=== PATIENT | male | born 1945 | race Caucasian/White ===

== ENCOUNTER 2023-01-05 13:02 | Emergency (ER) | payer MEDICARE, SELFPAY ==
[2023-01-05] VITALS (13 sets, daily range): BP systolic 107–161; BP diastolic 60–76; PULSE 95–112; RESP 16–22; TEMP 36.5; O2SAT 94–98; BMI 31.3
--- NOTE | 2023-01-05 13:49 | ED_ITS ---
HPI - Abdominal Pain <Mahogany Puga PA-C - Last Filed: 01/05/23 17:08> General Chief Complaint: Abdominal Pain Stated Complaint: Abd pain, vomiting, r side Time Seen by Provider: 01/05/23 13:29 Source: patient and family Mode of arrival: Ambulatory History of Present Illness HPI narrative: 77-year-old male with history of cardiac bypass surgery summer 2021, presents with his with concern for abdominal pain since yesterday around 10:00 a.m. that has been worsening significantly. Patient states that he was walking his dog when the pain started and he noticed it 1st as a generalized band across his upper abdomen. He said it was pretty uncomfortable and he went home and vomited profusely for awhile. He states he has not eaten anything since this time he has not had an appetite but he also has not continued to vomit. He says that the pain has gradually migrated and is now on the right side to the right of his belly button. He states it is very painful when he presses on it and it is also painful with movements and with walking. He describes it as a sharp pain that is constant. He endorses it is 6 or 7/10 when he is pressing on it and about a 2 or 3 at rest. He denies any previous abdominal surgeries. Patient states yesterday morning after his pain began and his vomiting episode happened he did have a bowel movement that was normal for him. He is not had a bowel movement since. Patient does state that he had a ?full body shock? after he took Dilaudid many years ago they transitioned to morphine and did fine with this. Also denies chest pain, shortness of breath diarrhea, flank pain, dysuria, constipation or any other symptoms. Related Data Home Medications Medication Instructions Recorded Confirmed CA PANTOTHENATE/FOLIC ACID/VIT 1 tab PO QDAY ##0 09/24/12 (MULTIVITAMIN) TERBINAFINE HYDROCHLORIDE (LAMISIL PRN ##0 09/24/12 AT 1%) [CALCIUM/VITAMIN D] ##0 09/24/12 aspirin 81 mg tablet,delayed 81 mg PO QDAY ##0 09/24/12 release DIMETHYL SULFONE/GLUCOSAMINE2 1 cap PO QDAY ##0 09/25/12 (GLUCOSAMINE SULFATE-MSM 500mg/500mg) CLOTRIMAZOLE 1% (LOTRIMIN) 1 % topical PRN ##30 09/30/12 acetaminophen 500 mg tablet 1 - 2 tab PO Q6HP PRN ##0 01/14/18 (Tylenol Extra Strength) atorvastatin 80 mg tablet (Lipitor) 1 tab PO Q DAY ##0 01/14/18 cetirizine 10 mg tablet 1 tab PO Q DAY ##0 01/14/18 clopidogrel 75 mg tablet (Plavix) 1 tab PO Q DAY PRN ##0 01/14/18 coenzyme Q10 100 mg capsule (Co 1 cap PO Q DAY ##0 01/14/18 Q-10) metoprolol succinate 25 mg 1 tab PO Q DAY ##0 01/14/18 tablet,extended release 24 hr (Toprol XL) nitroglycerin 0.4 mg sublingual 1 tab PO SEE INSTRUCTIONS PRN ##0 01/14/18 tablet (Nitrostat) Allergies Allergy/AdvReac Type Severity Reaction Status Date / Time chamomile flower Allergy Intermediate Abdominal Verified 01/05/23 14:05 [CHAMOMILE FLOWER] Pain meperidine [MEPERIDINE] Allergy Unknown Out of Unverified 01/28/18 12:52 body feeling/diaphoretic propoxyphene [PROPOXYPHENE] Allergy Unknown Unverified 01/28/18 12:52 hydromorphone [From Dilaudid] AdvReac Intermediate Verified 01/05/23 14:06 Review of Systems <Mahogany Puga PA-C - Last Filed: 01/05/23 17:08> Review of Systems Narrative: Unremarkable except as noted in the HPI Patient History <Mahogany Puga PA-C - Last Filed: 01/05/23 17:08> Social History Smoking Status: Never smoker Smoking Status: Never smoker alcohol intake frequency: 0-2 drinks per day Substance Use Type: does not use Exam <Mahogany Puga PA-C - Last Filed: 01/05/23 17:08> Narrative Exam Narrative: GENERAL: 77 year old patient appears stated age. Well-developed patient, in mild distress. HEAD: Atraumatic. Normocephalic. EYES: Pupils equal round and reactive. Extraocular motions intact. No scleral icterus. No injection or drainage. ENT: Nose without bleeding, purulent drainage. Airway patent. NECK: Trachea midline. Non tender CARDIOVASCULAR: Regular rate and rhythm without murmurs, gallops, or rubs. RESPIRATORY: Clear to auscultation. Breath sounds equal bilaterally. No wheezes, rales, or rhonchi. GASTROINTESTINAL: Abdomen soft, significant tenderness over the right lower quadrant and McBurney's point, otherwise slightly tender in the right upper quadrant otherwise non-tender, nondistended, very slight CVA tenderness on the right. Subtly positive obturator sign, negative heel tap. Increased RLQ pain with movement. EXTREMITIES: No bilateral mild lower extremity edema greater right than left, there is scarring on the right lower leg consistent with previous vascular harvesting no joint tenderness. BACK: Nontender without deformity or crepitance. Very slight right flank tenderness. NEURO: AOx3. SKIN: No rash or erythema of visible areas Initial Vital Signs Initial Vital Signs: Vital Signs Temperature 97.7 F 01/05/23 13:25 Pulse Rate 99 H 01/05/23 13:25 Respiratory Rate 18 01/05/23 13:25 Blood Pressure 161/76 H 01/05/23 13:25 Pulse Oximetry 98 01/05/23 13:25 Oxygen Delivery Method Room Air 01/05/23 13:25 <Yousuf Torres MD - Last Filed: 01/05/23 17:54> Initial Vital Signs Initial Vital Signs: Vital Signs Temperature 97.7 F 01/05/23 13:25 Pulse Rate 99 H 01/05/23 13:25 Respiratory Rate 18 01/05/23 13:25 Blood Pressure 161/76 H 01/05/23 13:25 Pulse Oximetry 98 01/05/23 13:25 Oxygen Delivery Method Room Air 01/05/23 13:25 Course <Mahogany Puga PA-C - Last Filed: 01/05/23 17:08> Course Course Narrative: Patient has labs notable for a very slight leukocytosis to 12.3. Otherwise unremarkable. Radiologist called and advised the patient has an acute appendicitis noted a large appendicolith but did not see evidence of abscess. 2 g cefazolin IV ordered as well as 500 mg metronidazole. Per staff OR is down and surgical cases will require transfer. Do consult on-call surgeon Dr. Escudero. [address] Escudero, on-call surgeon who is agreeable with the plan for metronidazole and cefazolin advises if patient is stuck here for period of time repeat cefazolin every 8 hours, she does state it is possible that he could do an interval appendectomy if there is difficulty in getting him transferred, given his moderate leukocytosis and may be possible to transition him to Augmentin and follow-up surgery. 15:30 In a coordinator advises that schedule it is a possible transfer destination they will be able to let us know in the next 30 minutes to 1 hour, [facility] is also possible this with a similar timeline. At this point will hold off on further check ins with hospitals, if we are able to get him admitted to a closer facility I think that makes more sense. 16:[address] Blanton, Surgery at [facility] spoke to me and I gave report on this p atient, it sounds like she would be willing to take the patient although unclear if they will try to do outpatient surgery or admit the patient, they will call back after checking with the electrician powerhouse there. 16:15 Pt is accepted at [facility] under Dr Blanton, working on transfer. Pt and family ty carreno. 1620 Orders Ordered: ED Orders 01/05/23 13:50 CT abdomen pelvis w con Stat 01/05/23 13:55 Complete Blood Count AUTO DIFF Stat Comprehensive Metabolic Panel Stat Lipase Stat Troponin & CK Cardiac Panel Stat 01/05/23 14:04 EKG-12 Lead Routine 01/05/23 16:05 Blood Culture Stat 01/05/23 17:01 COVID19 -Nasal RAPID Stat Discontinued Medications Sodium Chloride (Normal Saline 0.9%) 500 mls @ 1,000 mls/hr IV BOLUS ONE Stop: 01/05/23 14:53 Last Infusion: 01/05/23 14:58 Dose: 0 mls/hr Documented By: Admin: 01/05/23 14:28 Dose: 1,000 mls/hr Documented By: KENIA Metronidazole (Flagyl) 500 mg in 100 mls @ 100 mls/hr IV NOW ONE Stop: 01/05/23 16:20 Last Admin: 01/05/23 16:52 Dose: 100 mls/hr Documented By: KENIA Cefazolin Sodium/Dextrose (Ancef) 100 mls @ 200 mls/hr IV NOW ONE Stop: 01/05/23 15:53 Last Infusion: 01/05/23 16:52 Dose: 0 mls/hr Documented By: Admin: 01/05/23 16:18 Dose: 200 mls/hr Documented By: KENIA Morphine Sulfate (Morphine 2 Mg/Ml Inj) 2 mg IV NOW ONE Stop: 01/05/23 13:48 Last Admin: 01/05/23 14:10 Dose: 2 mg Documented By: KENIA Morphine Sulfate (Morphine 2 Mg/Ml Inj) 2 mg IV NOW ONE Stop: 01/05/23 17:10 Last Admin: 01/05/23 17:13 Dose: 2 mg Documented By: KENIA Ondansetron HCl (Ondansetron 4 Mg/2 Ml Inj) 4 mg IV NOW ONE Stop: 01/05/23 13:48 Last Admin: 01/05/23 14:09 Dose: Not Given Documented By: KENIA Vital Signs Vital signs: Vital Signs - 8 hr 01/05/23 13:25 01/05/23 13:35 01/05/23 14:00 Temperature 97.7 F Pulse Rate 99 H 100 H 98 H Respiratory Rate 18 22 Blood Pressure 161/76 H Pulse Oximetry 98 96 95 Oxygen Delivery Method Room Air 01/05/23 14:19 01/05/23 14:19 01/05/23 14:30 Temperature Pulse Rate 104 H Respiratory Rate 19 Blood Pressure 107/64 137/70 Pulse Oximetry 95 Oxygen Delivery Method 01/05/23 14:30 01/05/23 15:14 01/05/23 15:14 Temperature Pulse Rate 107 H 112 H Respiratory Rate 20 21 Blood Pressure 134/73 Pulse Oximetry 94 96 Oxygen Delivery Method 01/05/23 15:30 01/05/23 15:31 01/05/23 15:31 Temperature Pulse Rate 112 H 107 H Respiratory Rate 18 16 Blood Pressure 136/70 Pulse Oximetry 94 95 Oxygen Delivery Method 01/05/23 16:00 01/05/23 16:00 01/05/23 16:30 Temperature Pulse Rate 103 H Respiratory Rate Blood Pressure 143/66 H 135/68 Pulse Oximetry 96 Oxygen Delivery Method 01/05/23 16:30 01/05/23 16:58 01/05/23 16:58 Temperature Pulse Rate 102 H 97 H Respiratory Rate 21 22 Blood Pressure 117/66 Pulse Oximetry 95 96 Oxygen Delivery Method 01/05/23 16:59 01/05/23 17:00 Temperature Pulse Rate 95 H Respiratory Rate 21 Blood Pressure 126/60 Pulse Oximetry 97 Oxygen Delivery Method <Yousuf Torres MD - Last Filed: 01/05/23 17:54> Orders Ordered: ED Orders 01/05/23 13:50 CT abdomen pelvis w con Stat 01/05/23 13:55 Complete Blood Count AUTO DIFF Stat Comprehensive Metabolic Panel Stat Lipase Stat Troponin & CK Cardiac Panel Stat 01/05/23 14:04 EKG-12 Lead Routine 01/05/23 16:05 Blood Culture Stat 01/05/23 17:01 COVID19 -Nasal RAPID Stat Discontinued Medications Sodium Chloride (Normal Saline 0.9%) 500 mls @ 1,000 mls/hr IV BOLUS ONE Stop: 01/05/23 14:53 Last Infusion: 01/05/23 14:58 Dose: 0 mls/hr Documented By: Admin: 01/05/23 14:28 Dose: 1,000 mls/hr Documented By: KENIA Metronidazole (Flagyl) 500 mg in 100 mls @ 100 mls/hr IV NOW ONE Stop: 01/05/23 16:20 Last Admin: 01/05/23 16:52 Dose: 100 mls/hr Documented By: SB Cefazolin Sodium/Dextrose (Ancef) 100 mls @ 200 mls/hr IV NOW ONE Stop: 01/05/23 15:53 Last Infusion: 01/05/23 16:52 Dose: 0 mls/hr Documented By: Admin: 01/05/23 16:18 Dose: 200 mls/hr Documented By: KENIA Morphine Sulfate (Morphine 2 Mg/Ml Inj) 2 mg IV NOW ONE Stop: 01/05/23 13:48 Last Admin: 01/05/23 14:10 Dose: 2 mg Documented By: SB Morphine Sulfate (Morphine 2 Mg/Ml Inj) 2 mg IV NOW ONE Stop: 01/05/23 17:10 Last Admin: 01/05/23 17:13 Dose: 2 mg Documented By: KENIA Ondansetron HCl (Ondansetron 4 Mg/2 Ml Inj) 4 mg IV NOW ONE Stop: 01/05/23 13:48 Last Admin: 01/05/23 14:09 Dose: Not Given Documented By: SB Vital Signs Vital signs: Vital Signs - 8 hr 01/05/23 13:25 01/05/23 13:35 01/05/23 14:00 Temperature 97.7 F Pulse Rate 99 H 100 H 98 H Respiratory Rate 18 22 Blood Pressure 161/76 H Pulse Oximetry 98 96 95 Oxygen Delivery Method Room Air 01/05/23 14:19 01/05/23 14:19 01/05/23 14:30 Temperature Pulse Rate 104 H Respiratory Rate 19 Blood Pressure 107/64 137/70 Pulse Oximetry 95 Oxygen Delivery Method 01/05/23 14:30 01/05/23 15:14 01/05/23 15:14 Temperature Pulse Rate 107 H 112 H Respiratory Rate 20 21 Blood Pressure 134/73 Pulse Oximetry 94 96 Oxygen Delivery Method 01/05/23 15:30 01/05/23 15:31 01/05/23 15:31 Temperature Pulse Rate 112 H 107 H Respiratory Rate 18 16 Blood Pressure 136/70 Pulse Oximetry 94 95 Oxygen Delivery Method 01/05/23 16:00 01/05/23 16:00 01/05/23 16:30 Temperature Pulse Rate 103 H Respiratory Rate Blood Pressure 143/66 H 135/68 Pulse Oximetry 96 Oxygen Delivery Method 01/05/23 16:30 01/05/23 16:58 01/05/23 16:58 Temperature Pulse Rate 102 H 97 H Respiratory Rate 21 22 Blood Pressure 117/66 Pulse Oximetry 95 96 Oxygen Delivery Method 01/05/23 16:59 01/05/23 17:00 Temperature Pulse Rate 95 H Respiratory Rate 21 Blood Pressure 126/60 Pulse Oximetry 97 Oxygen Delivery Method MDM - Abdominal Pain <Mahogany Puga PA-C - Last Filed: 01/05/23 17:08> Differential Diagnosis Differential diagnosis: Likely abdominal pain and acute appendicitis Medical Records Attestation: I reviewed the patient's medical records. Lab Data Attestation: I reviewed the patient's lab results. 01/05/23 13:55 01/05/23 13:55 Labs: Lab Results 01/05/23 01/05/23 01/05/23 Range/Units 13:55 13:55 13:55 WBC 12.3 H (4.5-11.0) X10^3/uL RBC 4.18 L (4.5-5.9) X10^6/uL Hgb 12.3 L (13.5-17.5) g/dL Hct 35.9 L (41-53) % MCV 86.0 (80-100) fL MCH 29.5 (26-34) PG MCHC 34.3 (30-36) % RDW 13.3 (11.6-14.8) % Plt Count 293 (150-400) X10^3/uL Neut % (Auto) 84.2 H (50-75) % Lymph % (Auto) 8.0 L (25-40) % [place] % (Auto) 7.5 (3-14) % Eos % (Auto) 0.2 L (2-4) % Baso % (Auto) 0.1 (0-2) % Neut # (Auto) 01918 H (8895-1627) /uL Lymph # (Auto) 1000 L (2517-8928) /uL [place] # (Auto) 900 (0-900) /uL Eos # (Auto) 0 (0-450) /uL Baso # (Auto) 0 (0-100) /uL Sodium 137 (137-145) mmol/L Potassium 3.6 (3.4-5.1) mmol/L Chloride 101 (98-107) mmol/L Carbon Dioxide 28 (22-32) mmol/L BUN 14 (9-20) mg/dL Creatinine 0.80 (0.66-1.25) mg/dL Estimated GFR > 60 (>60) mL/min BUN/Creatinine Ratio 17.5 (6-22) Glucose 131 H (80-110) mg/dL Calcium 8.9 (8.4-10.2) mg/dL Total Bilirubin 1.3 (0.2-1.3) mg/dL AST 22 (17-59) IU/L ALT 21 (<50) IU/L Alkaline Phosphatase 63 (38-126) U/L Total Creatine Kinase 39 L (55-170) U/L CK-MB (CK-2) TNP CK-MB (CK-2) Rel Index TNP Troponin I < 0.012 (0.01-0.034) ng/mL Total Protein 7.5 (6.3-8.2) g/dL Albumin 4.3 (3.5-5.0) g/dL Globulin 3.2 (1.7-4.1) g/dL Albumin/Globulin Ratio 1.3 (1.0-2.8) Lipase 53 (23-300) U/L SARS-CoV-2 (PCR) (Negative) 01/05/23 Range/Units 17:01 WBC (4.5-11.0) X10^3/uL RBC (4.5-5.9) X10^6/uL Hgb (13.5-17.5) g/dL Hct (41-53) % MCV (80-100) fL MCH (26-34) PG MCHC (30-36) % RDW (11.6-14.8) % Plt Count (150-400) X10^3/uL Neut % (Auto) (50-75) % Lymph % (Auto) (25-40) % [place] % (Auto) (3-14) % Eos % (Auto) (2-4) % Baso % (Auto) (0-2) % Neut # (Auto) (1534-6080) /uL Lymph # (Auto) (3128-5336) /uL [place] # (Auto) (0-900) /uL Eos # (Auto) (0-450) /uL Baso # (Auto) (0-100) /uL Sodium (137-145) mmol/L Potassium (3.4-5.1) mmol/L Chloride (98-107) mmol/L Carbon Dioxide (22-32) mmol/L BUN (9-20) mg/dL Creatinine (0.66-1.25) mg/dL Estimated GFR (>60) mL/min BUN/Creatinine Ratio (6-22) Glucose (80-110) mg/dL Calcium (8.4-10.2) mg/dL Total Bilirubin (0.2-1.3) mg/dL AST (17-59) IU/L ALT (<50) IU/L Alkaline Phosphatase (38-126) U/L Total Creatine Kinase (55-170) U/L CK-MB (CK-2) CK-MB (CK-2) Rel Index Troponin I (0.01-0.034) ng/mL Total Protein (6.3-8.2) g/dL Albumin (3.5-5.0) g/dL Globulin (1.7-4.1) g/dL Albumin/Globulin Ratio (1.0-2.8) Lipase (23-300) U/L SARS-CoV-2 (PCR) Negative (Negative) Point of care testing: Urine Dip Bedside Urine Glucose Negative Bedside Urine Bilirubin - Negative Bedside Urine Ketone - Negative Urine Specific [place] 1.015 Bedside Urine Occult Blood +/- Bedside Urine pH 6.0 Bedside Urine Protein +/- 15 Bedside Urine Urobilinogen - Negative Bedside Urine Nitrite - Negative Bedside Urine Leukocytes - Negative Esterase Imaging Data CT scan - abdomen/pelvis: Radiologist's Impression: [address] [address] [address] Scan Report Signed Patient: Olivier Perez MR#: [id number] : 1945 Acct:[id number] Age/Sex: 77 / M Date of Service: 01/05/23 Loc: ED Accession Number: [id number] ?? Procedure: CT abdomen pelvis w con Ordering Provider: Mahogany Puga P.A-C PROCEDURE:? CT ABDOMEN PELVIS W CON ? INDICATIONS:? ABD pain 28 hr, migrated to RLQ, N/V ? TECHNIQUE:? After the administration of IV contrast, axial sections were acquired from the lung bases to the pubic symphysis.? Coronal and sagittal reformats were performed.? For radiation dose reduction, the following was used:? automated exposure control, adjustment of mA and/or kV according to patient size. ? COMPARISON:? None. ? FINDINGS:? Image quality:? Excellent.? ? Lung bases:? No pleural effusion.? ? Heart:? Post median sternotomy. ? ? ABDOMEN: Liver:? No focal lesion. Gallbladder:? Unremarkable.? ? Biliary ducts:? Unremarkable.? ? Pancreas:? Unremarkable.? ? Spleen:? Unremarkable.? ? Adrenal Glands:? Unremarkable.? ? Kidneys and Ureters:? No hydronephrosis. ? Stomach and Bowel:? The appendix is dilated up to 1.6 cm.? Large appendectolith measuring 1.3 cm near the origin of the appendix.? There is moderate inflammatory change surrounding the appendix.? No loculated fluid collection.? No free air.? Trace reactive fluid in the right pericolic gutter.? ? Stomach is not distended.? No small bowel obstruction.? Diverticulosis. Peritoneum:? No ascites.? No gross pneumoperitoneum. ? Ventral Wall: ? No hernia.? Abdominal Nodes:? No retroperitoneal or mesenteric adenopathy by size criteria.? Vessels:? Aorta and inferior vena cava are normal in size.? ? PELVIS: Pelvic Organs:? Prostatomegaly.? ? Bladder:? Unremarkable.? ? Pelvic Nodes: No enlarged lymph nodes.? Miscellaneous: No inguinal hernias are seen. ? ? ? Bones:? No suspicious lesion.? Anterolisthesis of L4 on L5 measuring 0.4 cm.? Joint space loss at L5-S1.? ? ? IMPRESSION:? Acute appendicitis.? No abscess. ? Comment: Findings were discussed with Mahogany Puga at time of dictation. ? ? Dictated by: French Koehler M.D. on 01/05/2023 at 15:12 ? ? Approved by: French Koehler M.D. on 01/05/2023 at 15:19?? ECG Data Attestation: I personally reviewed and interpreted this ECG as follows: Interpretation: Sinus tachycardia heart rate 107, prolonged QT QTC 592 milliseconds, no ST elevation or depression, no ectopy noted Treatment and Disposition Shared decision making:: Shared decision-making was used in discussing the workup evaluation and plan for transfer with anticipation of surgery. Patient and his were involved in the conversation and shared decision-making was used. MDM Narrative Medical decision making narrative: This is a 77-year-old very pleasant gentleman with history of cardiac bypass surgery in 2022, with allergy to Dilaudid who presents with concern for about 28 hours of abdominal pain that began as a band across his upper abdomen with severe vomiting now resolved and pain progressed to his right lower quadrant, 6/10 on initial exam. Exam was concerning for appendicitis, patient was mildly tachycardic and did have 1 episode of mild hypotension which resolved with a fluid bolus 500 mL. Patient's labs were not suggestive of sepsis, he did have a mild leukocytosis to 12.3. Patient did well with morphine which he had taken before and received 2 mg with good effect, antiemetics were withheld as patient had significantly prolonged QT on his EKG. Otherwise this just showed sinus tachycardia. Cardiac labs were also obtained given cardiac history and abdominal pain that began as upper abdominal pain, these returned unremarkable. Patient's urine dip and metabolic panel were also unremarkable. Blood Cultures were obtained prior to initiating antibiotics. CT scan returned showing an enlarged appendix to 1.6 cm with a 1.3 cm appendicolith. MARIANNA testing is obtained.Patient was started on cefazolin 2 g as well as metronidazole 500 mg. Patient has been kept NPO and last ate yesterday morning. On-call surgeon Dr. Escudero was consulted however operating room at [facility] is currently not taking cases. Located [facility] and Dr. Blanton ultimately agreed to take the patient, and patient is transferred via ambulance with antibiotics flowing. <Yousuf Torres MD - Last Filed: 01/05/23 17:54> Lab Data Labs: Lab Results 01/05/23 01/05/23 01/05/23 Range/Units 13:55 13:55 13:55 WBC 12.3 H (4.5-11.0) X10^3/uL RBC 4.18 L (4.5-5.9) X10^6/uL Hgb 12.3 L (13.5-17.5) g/dL Hct 35.9 L (41-53) % MCV 86.0 (80-100) fL MCH 29.5 (26-34) PG MCHC 34.3 (30-36) % RDW 13.3 (11.6-14.8) % Plt Count 293 (150-400) X10^3/uL Neut % (Auto) 84.2 H (50-75) % Lymph % (Auto) 8.0 L (25-40) % [place] % (Auto) 7.5 (3-14) % Eos % (Auto) 0.2 L (2-4) % Baso % (Auto) 0.1 (0-2) % Neut # (Auto) 29162 H (9705-6237) /uL Lymph # (Auto) 1000 L (2923-3652) /uL [place] # (Auto) 900 (0-900) /uL Eos # (Auto) 0 (0-450) /uL Baso # (Auto) 0 (0-100) /uL Sodium 137 (137-145) mmol/L Potassium 3.6 (3.4-5.1) mmol/L Chloride 101 (98-107) mmol/L Carbon Dioxide 28 (22-32) mmol/L BUN 14 (9-20) mg/dL Creatinine 0.80 (0.66-1.25) mg/dL Estimated GFR > 60 (>60) mL/min BUN/Creatinine Ratio 17.5 (6-22) Glucose 131 H (80-110) mg/dL Calcium 8.9 (8.4-10.2) mg/dL Total Bilirubin 1.3 (0.2-1.3) mg/dL AST 22 (17-59) IU/L ALT 21 (<50) IU/L Alkaline Phosphatase 63 (38-126) U/L Total Creatine Kinase 39 L (55-170) U/L CK-MB (CK-2) TNP CK-MB (CK-2) Rel Index TNP Troponin I < 0.012 (0.01-0.034) ng/mL Total Protein 7.5 (6.3-8.2) g/dL Albumin 4.3 (3.5-5.0) g/dL Globulin 3.2 (1.7-4.1) g/dL Albumin/Globulin Ratio 1.3 (1.0-2.8) Lipase 53 (23-300) U/L SARS-CoV-2 (PCR) (Negative) 01/05/23 Range/Units 17:01 WBC (4.5-11.0) X10^3/uL RBC (4.5-5.9) X10^6/uL Hgb (13.5-17.5) g/dL Hct (41-53) % MCV (80-100) fL MCH (26-34) PG MCHC (30-36) % RDW (11.6-14.8) % Plt Count (150-400) X10^3/uL Neut % (Auto) (50-75) % Lymph % (Auto) (25-40) % [place] % (Auto) (3-14) % Eos % (Auto) (2-4) % Baso % (Auto) (0-2) % Neut # (Auto) (7891-9682) /uL Lymph # (Auto) (0552-9029) /uL [place] # (Auto) (0-900) /uL Eos # (Auto) (0-450) /uL Baso # (Auto) (0-100) /uL Sodium (137-145) mmol/L Potassium (3.4-5.1) mmol/L Chloride (98-107) mmol/L Carbon Dioxide (22-32) mmol/L BUN (9-20) mg/dL Creatinine (0.66-1.25) mg/dL Estimated GFR (>60) mL/min BUN/Creatinine Ratio (6-22) Glucose (80-110) mg/dL Calcium (8.4-10.2) mg/dL Total Bilirubin (0.2-1.3) mg/dL AST (17-59) IU/L ALT (<50) IU/L Alkaline Phosphatase (38-126) U/L Total Creatine Kinase (55-170) U/L CK-MB (CK-2) CK-MB (CK-2) Rel Index Troponin I (0.01-0.034) ng/mL Total Protein (6.3-8.2) g/dL Albumin (3.5-5.0) g/dL Globulin (1.7-4.1) g/dL Albumin/Globulin Ratio (1.0-2.8) Lipase (23-300) U/L SARS-CoV-2 (PCR) Negative (Negative) Point of care testing: Urine Dip Bedside Urine Glucose Negative Bedside Urine Bilirubin - Negative Bedside Urine Ketone - Negative Urine Specific [place] 1.015 Bedside Urine Occult Blood +/- Bedside Urine pH 6.0 Bedside Urine Protein +/- 15 Bedside Urine Urobilinogen - Negative Bedside Urine Nitrite - Negative Bedside Urine Leukocytes - Negative Esterase Discharge Plan Departure Patient Disposition: [facility] Clinical Impression: Appendicitis Prescriptions: No Action aspirin 81 MG tablet,delayed release (DR/EC) 81 mg PO QDAY Qty: 0 [CALCIUM/VITAMIN D] Qty: 0 TERBINAFINE HYDROCHLORIDE (LAMISIL AT 1%) PRN Qty: 0 CA PANTOTHENATE/FOLIC ACID/VIT (MULTIVITAMIN) 1 tab PO QDAY Qty: 0 DIMETHYL SULFONE/GLUCOSAMINE2 (GLUCOSAMINE SULFATE-MSM 500mg/500mg) 1 cap PO QDAY Qty: 0 CLOTRIMAZOLE 1% (LOTRIMIN) 1 % Topical PRN Qty: 30 clopidogrel [Plavix] 75 MG tablet 1 tab PO Q DAY PRN Qty: 0 metoprolol succinate [Toprol XL] 25 MG tablet extended release 24 hr 1 tab PO Q DAY Qty: 0 coenzyme Q10 [Co Q-10] 100 MG capsule 1 cap PO Q DAY Qty: 0 acetaminophen [Tylenol Extra Strength] 500 MG tablet 1 - 2 tab PO Q6HP PRNQty: 0 cetirizine 10 MG tablet 1 tab PO Q DAY Qty: 0 nitroglycerin [Nitrostat] 0.4 MG tablet, sublingual 1 tab PO SEE INSTRUCTIONS PRNQty: 0 atorvastatin [Lipitor] 80 MG tablet 1 tab PO Q DAY Qty: 0 <Yousuf Torres MD - Last Filed: 01/05/23 17:54> Cosign ED Attending Franck Attestation: I was immediately available for consultation of this patient was seen and evaluated by the APC in the department.
--- NOTE | 2023-01-05 13:50 | DI.CT.S_ITS ---
PROCEDURE: CT ABDOMEN PELVIS W CON INDICATIONS: ABD pain 28 hr, migrated to RLQ, N/V TECHNIQUE: After the administration of IV contrast, axial sections were acquired from the lung bases to the pubic symphysis. Coronal and sagittal reformats were performed. For radiation dose reduction, the following was used: automated exposure control, adjustment of mA and/or kV according to patient size. COMPARISON: None. FINDINGS: Image quality: Excellent. Lung bases: No pleural effusion. Heart: Post median sternotomy. ABDOMEN: Liver: No focal lesion. Gallbladder: Unremarkable. Biliary ducts: Unremarkable. Pancreas: Unremarkable. Spleen: Unremarkable. Adrenal Glands: Unremarkable. Kidneys and Ureters: No hydronephrosis. Stomach and Bowel: The appendix is dilated up to 1.6 cm. Large appendectolith measuring 1.3 cm near the origin of the appendix. There is moderate inflammatory change surrounding the appendix. No loculated fluid collection. No free air. Trace reactive fluid in the right pericolic gutter. Stomach is not distended. No small bowel obstruction. Diverticulosis. Peritoneum: No ascites. No gross pneumoperitoneum. Ventral Wall: No hernia. Abdominal Nodes: No retroperitoneal or mesenteric adenopathy by size criteria. Vessels: Aorta and inferior vena cava are normal in size. PELVIS: Pelvic Organs: Prostatomegaly. Bladder: Unremarkable. Pelvic Nodes: No enlarged lymph nodes. Miscellaneous: No inguinal hernias are seen. Bones: No suspicious lesion. Anterolisthesis of L4 on L5 measuring 0.4 cm. Joint space loss at L5-S1. IMPRESSION: Acute appendicitis. No abscess. Comment: Findings were discussed with Mahogany Puga at time of dictation. Dictated by: French Koehler M.D. on 01/05/2023 at 15:12 Approved by: French Koehler M.D. on 01/05/2023 at 15:19
[2023-01-05 14:03] LABS: Add Manual Diff / Slide Review NO; Basophils Absolute Auto 0 /uL (0-100); Basophils Percent Auto 0.1 % (0-2); Eosinophils Absolute Auto 0 /uL (0-450); Eosinophils Percent Auto 0.2 % (2-4); Hematocrit 35.9 % (41-53); Hemoglobin 12.3 g/dL (13.5-17.5); Lymphocytes Absolute Auto 1000 /uL (1100-4500); Mean Corpuscular HGB Conc 34.3 % (30-36); Mean Corpuscular Hemoglobin 29.5 PG (26-34); Monocytes Absolute Auto 900 /uL (0-900); Monocytes Percent Auto 7.5 % (3-14); Neutrophils Absolute Auto 10400 /uL (1500-7000); Neutrophils Percent Auto 84.2 % (50-75); Platelet Count 293 X10^3/uL (150-400); Red Blood Cell Count 4.18 X10^6/uL (4.5-5.9); Red Cell Distribution Width 13.3 % (11.6-14.8); White Blood Cell Count 12.3 X10^3/uL (4.5-11.0)
[2023-01-05] MEDS: MORPHINE 2 MG/ML INJ IV ×2 (14:10→17:13)
[2023-01-05 14:17] LABS: Alanine Aminotransferase 21 IU/L (<50); Albumin 4.3 g/dL (3.5-5.0); Albumin Globulin Ratio 1.3 (1.0-2.8); Alkaline Phosphatase 63 U/L (38-126); Aspartate Aminotransferase 22 IU/L (17-59); BUN Creatinine Ratio 17.5 (6-22); Bilirubin Total 1.3 mg/dL (0.2-1.3); Blood Urea Nitrogen 14 mg/dL (9-20); Calcium 8.9 mg/dL (8.4-10.2); Carbon Dioxide 28 mmol/L (22-32); Chloride 101 mmol/L (98-107); Creatine Kinase 39 U/L (55-170); Estimated Glomerular Filt Rate > 60 mL/min (>60); Globulin 3.2 g/dL (1.7-4.1); Glucose 131 mg/dL (80-110); HEMOLYSIS < 15 (0-50); Lipase 53 U/L (23-300); Potassium 3.6 mmol/L (3.4-5.1); Sodium 137 mmol/L (137-145); Total Protein 7.5 g/dL (6.3-8.2)
[2023-01-05 14:27] LABS: Troponin I < 0.012 ng/mL (0.01-0.034)
[2023-01-05] MEDS: SODIUM CHLORIDE 0.9% 500 ML 1000 ML IV (14:28)
--- NOTE | 2023-01-05 16:00 | PC.NURSE ---
Lab called for blood culture draw.
[2023-01-05] MEDS: CEFAZOLIN 2 GM/100 ML PREMIX 100 ML IV (16:18)
[2023-01-05] MEDS: metroNIDAZOLE 500 MG/100 ML PIGGYBACK 100 MG IV (16:52)
[2023-01-05 17:24] LABS: COVID19 -Nasal RAPID Negative (Negative)
== END 2023-01-05 17:31 | disposition short-term general hospital (02) ==
PROVIDERS: Emergency Provider Student in an Organized Health Care Education/Training Program
DX: K37 Unspecified appendicitis (principal); R11.2 Nausea with vomiting, unspecified; R10.9 Unspecified abdominal pain; Z20.822 Contact with and (suspected) exposure to COVID-19
CPT/HCPCS: 36415; 74177; 80053; 81003; 82550; 83690; 84484; 85025; 87040; 87635; 93005; 93010; 96365; 96367; 96375; 96376; 99284; C9803; J0690; J2270; Q9967